=== PATIENT | male | born 1950 | race Two or more races ===

== ENCOUNTER 2017-06-28 15:41 | Inpatient (IN) | payer MEDICAID, MEDICARE ==
[~2017-06-28] VITALS: Ht 170.2 cm; Wt 78.0 kg
[2017-06-28] MEDS ORDERED: Sodium Chloride 500ML 500 ML IV ONE (16:04)
--- NOTE | 2017-06-28 16:34 | Emergency Room Report ---
History of Present Illness General Chief Complaint: Syncope Source: Patient, Family Member, EMS Present Illness HPI Patient presents with complaints of syncopal episode Over the past 10 days the patient has had several syncopal episodes reports low blood pressure Patient has history of Parkinson's is on 3 different medications Patient was at primary physician office when he had the syncopal episode and sent to the ER Here the patient denies any chest pain or shortness of breath reports the patient has chronic low back pain Denies any neck pain or photophobia patient however has had increased urination frequency Allergies: Coded Allergies: No Known Allergies (Unverified , 06/28/17) Patient History Past Medical History: see triage record Past Surgical History: none Reviewed Nursing Documentation: PMH: Agreed, PSxH: Agreed Nursing Documentation-PMH History Of Psychiatric Problem: Yes - Depression Hx Neurological Problems: Yes - Simrankinshaleigh's Review of Systems All Other Systems: negative except mentioned in HPI Physical Exam Vital Signs Date Time Temp Pulse Resp B/P (MAP) Pulse Ox O2 Delivery O2 Flow Rate FiO2 06/28/17 15:15 98.1 80 20 117/69 99 Room Air Sp02 EP Interpretation: reviewed, normal General Appearance: well appearing, no apparent distress Head: normocephalic, atraumatic Eyes: bilateral eye PERRL, bilateral eye EOMI ENT: hearing grossly normal, normal pharynx Neck: supple Respiratory: chest non-tender, lungs clear Cardiovascular #1: regular rate, rhythm, no edema Gastrointestinal: non tender, soft Musculoskeletal: other - Patient has baseline tremor, in line with appears to be Parkinson's Neurologic: alert, oriented x3, responsive, other - Parkinson's tremor Skin: normal color, no rash Lymphatic: no adenopathy Medical Decision Making Diagnostic Impression: Primary Impression: Syncope Additional Impression: Pyelonephritis ER Course Patient is a fairly complex patient with multiple differential to consideration including but not limited to cardiac cardiopulmonary and vascular emergencies Patient's evaluation also reveals UTI with possible pyelonephritis Possible early sepsis Patient otherwise remains appropriate hemodynamically At this time provide broad-spectrum antibiotics And patient admitted for further inpatient care Labs Test 06/28/17 16:30 06/28/17 17:28 White Blood Count 10.9 K/UL (4.8-10.8) Red Blood Count 4.79 M/UL (4.70-6.10) Hemoglobin 15.7 G/DL (14.2-18.0) Hematocrit 45.1 % (42.0-52.0) Mean Corpuscular Volume 94 FL (80-99) Mean Corpuscular Hemoglobin 32.7 PG (27.0-31.0) Mean Corpuscular Hemoglobin Concent 34.8 G/DL (32.0-36.0) Red Cell Distribution Width 10.9 % (11.6-14.8) Platelet Count 213 K/UL (150-450) Mean Platelet Volume 5.7 FL (6.5-10.1) Neutrophils (%) (Auto) 73.2 % (45.0-75.0) Lymphocytes (%) (Auto) 12.4 % (20.0-45.0) Monocytes (%) (Auto) 13.5 % (1.0-10.0) Eosinophils (%) (Auto) 0.3 % (0.0-3.0) Basophils (%) (Auto) 0.7 % (0.0-2.0) Sodium Level 136 MMOL/L (136-145) Potassium Level 4.4 MMOL/L (3.5-5.1) Chloride Level 100 MMOL/L (98-107) Carbon Dioxide Level 25 MMOL/L (21-32) Anion Gap 11 mmol/L (5-15) Blood Urea Nitrogen 17 mg/dL (7-18) Creatinine 1.0 MG/DL (0.55-1.30) Estimat Glomerular Filtration Rate > 60 mL/min (>60) Glucose Level 100 MG/DL (74-106) Calcium Level 7.4 MG/DL (8.5-10.1) Total Bilirubin 0.9 MG/DL (0.2-1.0) Aspartate Amino Transf (AST/SGOT) 17 U/L (15-37) Alanine Aminotransferase (ALT/SGPT) 9 U/L (12-78) Alkaline Phosphatase 85 U/L (46-116) Total Creatine Kinase 85 U/L (26-308) Creatine Kinase MB 0.5 NG/ML (0.0-3.6) Creatine Kinase MB Relative Index 0.5 Troponin I 0.000 ng/mL (0.000-0.056) Total Protein 7.2 G/DL (6.4-8.2) Albumin 3.2 G/DL (3.4-5.0) Globulin 4.0 g/dL Albumin/Globulin Ratio 0.8 (1.0-2.7) Lipase 138 U/L (73-393) Urine Color Pale yellow Urine Appearance Slightly cloudy Urine pH 6.5 (4.5-8.0) Urine Specific [place] 1.010 (1.005-1.035) Urine Protein 3+ (NEGATIVE) Urine Glucose (UA) Negative (NEGATIVE) Urine Ketones Negative (NEGATIVE) Urine Occult Blood 4+ (NEGATIVE) Urine Nitrite Positive (NEGATIVE) Urine Bilirubin Negative (NEGATIVE) Urine Urobilinogen Normal MG/DL (0.0-1.0) Urine Leukocyte Esterase 3+ (NEGATIVE) Urine RBC 5-10 /HPF (0 - 0) Urine WBC 10-15 /HPF (0 - 0) Urine Squamous Epithelial Cells None /LPF (NONE/OCC) Urine Amorphous Sediment Few /LPF (NONE) Urine Bacteria Moderate /HPF (NONE) EKG Diagnostic Results Rate: normal Rhythm: NSR ST Segments: no acute changes Rhythm Strip Diag. Results EP Interpretation: yes Rate: 78 Rhythm: NSR, no PVC's, no ectopy Last Vital Signs Date Time Temp Pulse Resp B/P (MAP) Pulse Ox O2 Delivery O2 Flow Rate FiO2 06/28/17 15:15 98.1 80 20 117/69 99 Room Air Status: improved Disposition: ADMITTED INPATIENT Condition: Serious YOHANA WALL D.O. Jun 28, 2017 16:34
[2017-06-28 16:51] LABS: BASOPHILS % (AUTO) 0.7 % (0.0-2.0); EOSINOPHILS % (AUTO) 0.3 % (0.0-3.0); HEMATOCRIT 45.1 % (42.0-52.0); HEMOGLOBIN 15.7 G/DL (14.2-18.0); LYMPHOCYTES % (AUTO) 12.4 % (20.0-45.0); MEAN CORPUSCULAR VOLUME 94 FL (80-99); MONOCYTES % (AUTO) 13.5 % (1.0-10.0); NEUTROPHILS % (AUTO) 73.2 % (45.0-75.0); PLATELET COUNT 213 K/UL (150-450); RED BLOOD COUNT 4.79 M/UL (4.70-6.10); RED CELL DISTRIBUTION WIDTH 10.9 % (11.6-14.8); WHITE BLOOD COUNT 10.9 K/UL (4.8-10.8)
[2017-06-28 17:00] LABS: ANION GAP 11 mmol/L (5-15); BLOOD UREA NITROGEN 17 mg/dL (7-18); CALCIUM 7.4 MG/DL (8.5-10.1); CARBON DIOXIDE 25 MMOL/L (21-32); CHLORIDE 100 MMOL/L (98-107); POTASSIUM 4.4 MMOL/L (3.5-5.1); SODIUM 136 MMOL/L (136-145)
[2017-06-28 17:06] VITALS: BP 129/58
[2017-06-28 17:13] LABS: ALANINE AMINOTRANSFERASE 9 U/L (12-78); ALBUMIN 3.2 G/DL (3.4-5.0); ALBUMIN/GLOBULIN RATIO 0.8 (1.0-2.7); ALKALINE PHOSPHATASE 85 U/L (46-116); ASPARTATE AMINO TRANSFERASE 17 U/L (15-37); BILIRUBIN,TOTAL 0.9 MG/DL (0.2-1.0); CKMB 0.5 NG/ML (0.0-3.6); CREATINE KINASE 85 U/L (26-308)
[2017-06-28 17:37] LABS: BILIRUBIN, URINE NEGATIVE (NEGATIVE); COLOR,URINE PALE YELLOW; GLUCOSE, URINE (UA) NEGATIVE (NEGATIVE); KETONES,URINE NEGATIVE (NEGATIVE); LEUKOCYTE ESTERASE ,URINE 3+ (NEGATIVE); NITRITE,URINE POSITIVE (NEGATIVE); PH,URINE 6.5 (4.5-8.0); PROTEIN,URINE 3+ (NEGATIVE); UROBILINOGEN,URINE NORMAL MG/DL (0.0-1.0)
[2017-06-28 17:39] LABS: APPEARANCE,URINE SLIGHTLY CLOUDY
[2017-06-28] MEDS ORDERED: cefTRIAXone 1 GM in NS 55 ML IVPB ONE (18:00)
[2017-06-28 18:21] VITALS: BP 123/57
[2017-06-28 19:00] VITALS: BP 135/56
[2017-06-28] MEDS ORDERED: Trihexyphenidyl 2mg tab ORAL ONE (19:45)
[2017-06-28] MEDS ORDERED: Levodopa/Carbidopa 25/100 tab ORAL ONE (19:45)
[2017-06-28] MEDS ORDERED: TRIHEXYPHENIDYL2 MG ORAL (19:46)
[2017-06-28] MEDS ORDERED: DOCUSATE SODIU250 MG ORAL (20:07)
[2017-06-28] MEDS ORDERED: SINEMET 25-1001 EAC1 ORAL ×2 (20:12→20:13)
[2017-06-28] MEDS ORDERED: MOBIC7.5 MG ORAL (20:14)
[2017-06-28] MEDS ORDERED: LACTULOSE20 GM/301 ORAL (20:15)
[2017-06-28] MEDS ORDERED: TAMSULOSIN HCL0.4 MG ORAL (20:16)
[2017-06-28] MEDS ORDERED: AMANTADINE100 M2 ORAL (20:19)
[2017-06-28] MEDS ORDERED: PROPRANOLOL HCL20 MG ORAL (20:23)
[2017-06-28] MEDS ORDERED: ASPIR-LOW81 MG ORAL (20:24)
[2017-06-28] MEDS ORDERED: VITAMIN D1000 UNI1 ORAL (20:24)
[2017-06-28] MEDS ORDERED: FISH OIL 1,0001 EAC1 ORAL (20:25)
[2017-06-28 21:00] VITALS: BP 145/59
[2017-06-28 22:30] VITALS: BP 142/61
[2017-06-28 23:40] VITALS: BP_SYST 133; BP_SYST 142; BP_DIAS 61; BP_DIAS 67
[2017-06-29 04:00] VITALS: BP 136/64
[2017-06-29 08:00] VITALS: BP 147/70
[2017-06-29 08:44] LABS: BASOPHILS % (AUTO) 0.6 % (0.0-2.0); EOSINOPHILS % (AUTO) 0.6 % (0.0-3.0); HEMATOCRIT 43.1 % (42.0-52.0); HEMOGLOBIN 14.7 G/DL (14.2-18.0); MEAN CORPUSCULAR VOLUME 96 FL (80-99); MONOCYTES % (AUTO) 12.5 % (1.0-10.0); NEUTROPHILS % (AUTO) 65.4 % (45.0-75.0); PLATELET COUNT 240 K/UL (150-450); RED CELL DISTRIBUTION WIDTH 10.9 % (11.6-14.8); WHITE BLOOD COUNT 9.1 K/UL (4.8-10.8)
[2017-06-29 08:53] LABS: ANION GAP 10 mmol/L (5-15); BLOOD UREA NITROGEN 16 mg/dL (7-18); CALCIUM 7.6 MG/DL (8.5-10.1); CARBON DIOXIDE 25 MMOL/L (21-32); CHLORIDE 104 MMOL/L (98-107); POTASSIUM 3.8 MMOL/L (3.5-5.1); SODIUM 138 MMOL/L (136-145)
[2017-06-29 12:00] VITALS: BP 136/63
--- NOTE | 2017-06-29 12:58 | Cardiology Report ---
APPROVED REPORT EKG Measurement Heart [id number] Normal sinus rhythm Normal ECG
[2017-06-29] MEDS ORDERED: Lactulose 20gm/30ml UDC ORAL PRN (13:15)
[2017-06-29] MEDS: Levodopa/Carbidopa 25/100 tab ORAL SCH (13:30)
[2017-06-29] MEDS ORDERED: Levodopa/Carbidopa 25/100 tab ORAL SCH ×2 (13:30→19:30)
[2017-06-29] MEDS: Amantadine 100mg cap ORAL SCH (14:30)
[2017-06-29] MEDS: Trihexyphenidyl 2mg tab ORAL SCH ×2 (14:30→20:01)
[2017-06-29 16:00] VITALS: BP 134/60
[2017-06-29] MEDS: Aspirin EC 81mg tab ORAL SCH (18:12)
[2017-06-29] MEDS ORDERED: cefTRIAXone 1 GM in D5W 55 ML IVPB SCH (20:00)
[2017-06-29 20:42] VITALS: BP 150/78
[2017-06-29] MEDS ORDERED: Tamsulosin 0.4mg cap ORAL SCH (21:00)
[2017-06-29] MEDS ORDERED: Norco 5mg/325mg tab ORAL PRN (22:45)
[2017-06-30 00:41] VITALS: BP 151/74
[2017-06-30 04:50] VITALS: BP 148/69
--- NOTE | 2017-06-30 05:00 | History and Physical Report ---
DATE OF ADMISSION: 06/28/2017 HISTORY OF PRESENT ILLNESS: The patient is a 67-year-old male with past medical history significant for history of Parkinson disease. At this time, I have called the patient with primary care physician. He had a syncopal episode, therefore sent to the ER. reports the patient has chronic back pain. Denies any photophobia. He presents with complaints of syncopal episode again. Over the past 10 days, he has been feeling weak, decreased blood pressure as well as having a low blood sugar, which has currently improved, and I have ordered for neurology evaluation. The patient also to be seen by ID Service. The patient has gram-positive bacilli noted in the urine white count. PAST MEDICAL HISTORY: As noted above. PAST SURGICAL HISTORY: None noted. ALLERGIES: No known drug allergies. FAMILY HISTORY: Noncontributory. REVIEW OF SYSTEMS: A 12-point review of systems otherwise negative. PHYSICAL EXAMINATION: GENERAL: No acute distress. VITAL SIGNS: Reviewed. PULMONARY: Decreased breath sounds. CARDIOVASCULAR: Regular rate. No S3 or S4. ABDOMEN: Soft, nontender, and nondistended. EXTREMITIES: A 1+ edema. LABORATORY DATA: Reviewed as noted in EMR. ASSESSMENT AND RECOMMENDATIONS: 1. Syncope, potentially secondary to pyelonephritis infection. Continue current antibiotics. I appreciate ID consult. 2. Urinary tract infection. Continue antibiotics as per ID. 3. Hip pain. Continue pain medications. Begin the patient on [place] as needed. 4. Syncope versus presyncope. Obtain neurological evaluation. 5. Hyperglycemia, likely related to intake of sugar. 6. Leukocytosis, probably secondary to urinary tract infection. I appreciate the contamination consultant care. Raz Padilla M.D. DR: MICHAEL JOB#: [id number] CC:
[2017-06-30] MEDS: Trihexyphenidyl 2mg tab ORAL SCH ×3 (07:02→18:36)
[2017-06-30] MEDS: Levodopa/Carbidopa 25/100 tab ORAL SCH ×2 (07:02→13:23)
[2017-06-30] MEDS: Amantadine 100mg cap ORAL SCH ×2 (07:02→13:23)
[2017-06-30 08:00] VITALS: BP 157/71
--- NOTE | 2017-06-30 08:39 | Diagnostic Imaging Report ---
Indication: Abnormal renal function tests Technique: Grayscale and duplex images of the kidneys, retroperitoneum, and bladder were obtained. Comparison: Findings: Right kidney measures 10.9 cm in length. Left kidney measures 13 cm in length. Both kidneys demonstrate normal echogenicity. No hydronephrosis. No focal abnormality. Normal inferior vena cava. Bladder contains debris. Impression: Debris within the bladder. This is nonspecific, could indicate infection, blood, among other possibilities Negative for hydronephrosis.
[2017-06-30] MEDS ORDERED: Vitamin D 1000 IU Tab ORAL SCH (09:00)
[2017-06-30] MEDS: Docusate 100mg cap ORAL PRN ×2 (09:12→13:23)
[2017-06-30] MEDS: Aspirin EC 81mg tab ORAL SCH (09:12)
[2017-06-30 12:00] VITALS: BP 147/69
[2017-06-30 16:30] VITALS: BP 132/77
[2017-06-30] MEDS ORDERED: Norco 5mg/325mg tab ORAL PRN (16:45)
[2017-06-30] MEDS ORDERED: Docusate 100mg cap ORAL PRN (18:00)
--- NOTE | 2017-06-30 18:47 | Consultation ---
DATE OF CONSULTATION: 06/30/2017 INFECTIOUS DISEASE CONSULTATION CONSULTING PHYSICIAN: Guy Park M.D. PRIMARY ATTENDING PHYSICIAN: Raz Padilla M.D. REASON FOR CONSULTATION: UTI. HISTORY OF PRESENT ILLNESS: The patient is a 67-year-old male admitted on 06/28/2017 because of syncopal episode. The patient had been feeling weak in recent days with low blood pressure. He has some suprapubic pain. PAST MEDICAL HISTORY: Significant for Parkinson disease, has prostatic enlargement and last year had ablation. ALLERGIES: No known drug allergies. MEDICATIONS: Meloxicam, Colace, [place], Flomax, ceftriaxone, Sinemet, amantadine, Artane, aspirin, lactulose and sodium chloride. SOCIAL HISTORY: Originally from [place]. 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 He is an ex-smoker. The last time he smoked was 17 years ago. REVIEW OF SYSTEMS: No fever. No chills. Some suprapubic pain. No nausea. No vomiting. No diarrhea. No coughing. PHYSICAL EXAMINATION: VITAL SIGNS: Temperature 98.1, pulse 61, and blood pressure is 157/71. GENERAL APPEARANCE: No acute distress. HEAD AND NECK: Coulter conjunctivae. HEART: S1 and S2 regular. LUNGS: Clear. ABDOMEN: Soft. Mildly tender in the suprapubic area. EXTREMITIES: He has no edema. Good muscle force in upper extremity, and has had some muscle weakness in the legs. NEUROLOGIC: Awake, alert, and oriented. LABORATORY AND DIAGNOSTIC DATA: WBC 9.1, hemoglobin 14.1, hematocrit 43.1, and platelets 240. Sodium 138, potassium 3.8, chloride 104, bicarbonate 25, BUN 16, creatinine 1, and glucose 159. Urine culture grew E. coli that is sensitive to all antibiotics in the panel. IMPRESSION: Escherichia coli urinary tract infection, likely cystitis. There was some debris within the bladder on ultrasound. The patient had a syncopal episode, has Parkinson disease. RECOMMENDATION: Continue Rocephin at the hospital. Can be discharged with p.o. amoxicillin or Keflex. At the end of my exam, I thank Dr. Padilla for involving me in the care of this patient. Guy Park M.D. DR: MAIDA JOB#: [id number] CC:
[2017-06-30] MEDS ORDERED: Levodopa/Carbidopa 25/100 tab ORAL SCH (19:30)
[2017-06-30 20:14] VITALS: BP 160/70
[2017-06-30] MEDS ORDERED: cefTRIAXone 1 GM in D5W 55 ML IVPB SCH (21:00)
[2017-06-30] MEDS ORDERED: Tamsulosin 0.4mg cap ORAL SCH (21:00)
[2017-06-30] MEDS ORDERED: Lactulose 20gm/30ml UDC ORAL PRN (21:15)
[2017-07-01 00:01] VITALS: BP 149/67
[2017-07-01 04:00] VITALS: BP 140/80
[2017-07-01] MEDS: Trihexyphenidyl 2mg tab ORAL SCH (06:52)
[2017-07-01] MEDS ORDERED: Amantadine 100mg cap ORAL SCH (07:30)
[2017-07-01] MEDS ORDERED: Levodopa/Carbidopa 25/100 tab ORAL SCH (07:30)
[2017-07-01 08:00] VITALS: BP 128/55
--- NOTE | 2017-07-01 08:55 | General Progress Note ---
Assessment/Plan Assessment/Plan LATE ENTRY ASSESSMENT AND RECOMMENDATIONS: 1. Syncope, potentially secondary to cystitis infection. Continue current antibiotics. appreciate ID consult. 2. Cystitis. Continue antibiotics as per ID. 3. Hip pain. Continue pain medications. Begin the patient on [place] as needed. 4. Syncope versus presyncope. Obtain neurological evaluation. 5. Leukocytosis, probably secondary to urinary tract infection. Subjective Date patient seen: Jun 30, 2017 Allergies: Coded Allergies: No Known Allergies (Unverified , 06/28/17) All Systems: reviewed and negative except above Subjective NAD on abx Objective Last 24 Hour Vital Signs Date Time Temp Pulse Resp B/P (MAP) Pulse Ox O2 Delivery O2 Flow Rate FiO2 07/01/17 08:00 98.0 73 18 128/55 97 07/01/17 04:01 Room Air 07/01/17 04:00 98.0 55 18 140/80 97 07/01/17 00:02 Room Air 07/01/17 00:01 98.3 53 17 149/67 98 06/30/17 20:15 Room Air 06/30/17 20:14 97.1 58 19 160/70 98 06/30/17 16:30 98.2 65 20 132/77 96 06/30/17 12:00 60 06/30/17 12:00 98.1 61 20 147/69 96 Room Air Intake and Output 06/30/17 07/01/17 19:00 07:00 Intake Total 480 ml 1495 ml Output Total 1400 ml Balance -920 ml 1495 ml Intake Oral 480 ml 240 ml IV Total 1255 ml Output Urine Total 1400 ml # Voids 2 Height (Feet): 5 Height (Inches): 7.00 Weight (Pounds): 172 General Appearance: no apparent distress EENT: normal ENT inspection Neck: normal alignment Cardiovascular: normal peripheral pulses Abdomen: non tender 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
[2017-07-01] MEDS ORDERED: Heparin 5000 units/ml inj SUBQ SCH (09:00)
[2017-07-01] MEDS ORDERED: Vitamin D 1000 IU Tab ORAL SCH (09:00)
[2017-07-01] MEDS ORDERED: Aspirin EC 81mg tab ORAL SCH (09:00)
[2017-07-01] MEDS ORDERED: Tubing IV Secondary IV ONE ×2 (12:21)
--- NOTE | 2017-07-05 07:47 | Discharge Summary ---
Discharge Summary Hospital Course Date of Admission Jun 28, 2017 at 18:14 Date of Discharge Jul 01, 2017 at 12:22 Admitting Diagnosis PYELONEPHRITIES,SYNCOPE YURIY Thomas is a 67 year old male who was admitted on Jun 28, 2017 at 18:14 for Pyelonephrities, Syncope Hospital Course dc summary #[id number] Discharge Medications Continued Medications: Amantadine Hcl* (Amantadine*) 100 Mg Tablet 100 MG ORAL BID@0730,1330, TAB Aspirin* (Aspir-Low*) 81 Mg Tablet.dr 81 MG ORAL DAILY, TAB Carbidopa/Levodopa 25-100 Mg* (Sinemet 25-100 Mg Tablet*) 1 Each Tablet 1 TAB ORAL DAILY@1930, TAB Carbidopa/Levodopa 25-100 Mg* (Sinemet 25-100 Mg Tablet*) 1 Each Tablet 2 TAB ORAL BID@0730,1330, TAB Cholecalciferol (Vitamin D3)* (Vitamin D*) Unknown Strength Tablet Unknown Dose ORAL DAILY, #30 TAB Docusate Sodium* (Docusate Sodium*) 250 Mg Capsule 250 MG ORAL PRN for Constipation, CAP Lactulose (Lactulose*) 20 Gm/30 Ml Solution 15 ML ORAL PRN for Constipation, ML 0 Refills Meloxicam* (Mobic*) 7.5 Mg Tablet 7.5 MG ORAL DAILY, #30 TAB 0 Refills [place]-3 Fatty Acids/Fish Oil* (Fish Oil 1,000 Mg Softgel*) Unknown Strength Capsule Unknown Dose ORAL, #30 CAP 0 Refills Propranolol Hcl* (Inderal*) Unknown Strength Tablet Unknown Dose ORAL, #90 TAB 0 Refills Tamsulosin Hcl (Tamsulosin Hcl*) 0.4 Mg Cap.er.24h 0.4 MG ORAL BEDTIME, CAP Trihexyphenidyl Hcl* (Artane*) 2 Mg Tablet 2 MG ORAL TID@0730,1330,1930, TAB Discharge Condition Upon Discharge: stable Discharge Disposition Patient was discharged home Discharge Diagnoses: Discharge Instructions Discharge Instructions Special Instructions I have been assigned to complete a D/C Summary on this account. I was not involved in the patient management Dipika Castaneda NP ([place]) Jul 05, 2017 07:47
--- NOTE | 2017-07-05 17:30 | Discharge Summary 2 SIG ---
DATE OF ADMISSION: 06/28/2017 DATE OF DISCHARGE: 07/01/2017 REASON FOR ADMISSION: 67-year-old male with history of Parkinson disease, presented to emergency room after syncopal episode. Apparently over the last 10 days, the patient had several syncopal episodes, the last one in the doctor's office. Doctor sent the patient to emergency room for evaluation. reported low blood pressure. In the emergency department, vital signs were stable. Blood pressure -117/69, WBC -10.9, and stable hemoglobin and hematocrit. Stable renal parameters and electrolytes. Troponin was negative. EKG showed normal sinus rhythm, no acute ischemic changes. Urinalysis revealed evidence of urinary tract infection. The patient was admitted with diagnoses of syncope and possible pyelonephritis. HOSPITAL STAY: The patient was admitted. ID consult was requested. The patient was started on empiric antibiotics. Urine culture was positive for E.coli. Renal ultrasound revealed normal echogenicity of bilateral kidneys, no hydronephrosis, and bladder containing debris. Blood pressure remained stable throughout the stay in the hospital. Home medications were resumed. DVT prophylaxis was provided. Parkinson management with Sinemet, Amantadine and Artane was continued. Bowel regimen was instituted. Pain management was provided for chronic low back and hip pain. No leukocytosis. ID cleared for discharge on oral antibiotics. The patient was stable for discharge home. FINAL DIAGNOSES: 1. Syncope likely secondary to cystitis infection. 2. Cystitis. 3. Parkinson disease. 4. Hip pain. 5. Mild leukocytosis likely secondary to urinary tract infection, resolved. DISCHARGE MEDICATIONS: See medication reconciliation list. DISCHARGE INSTRUCTIONS: The patient was discharged home. FOLLOWUP: Follow up with the primary medical doctor. Raz Padilla M.D. I have been assigned to dictate discharge summary on this account and I was not involved in the patient's management. Dipika Haletuan N.PKaelyn DR: JUAN MIGUEL JOB#: [id number] CC: DON
== END 2017-07-01 12:22 | disposition home or self-care (01) | DRG 463 ==
LOC: EDBD 15:41 → EMR 17:08 → 2E 18:14 → EDBEDREQ 22:23 → 3E 06-30 16:43
DX: N30.90 Cystitis, unspecified without hematuria (principal); G20 Parkinson's disease; R55 Syncope and collapse; B96.20 Unspecified Escherichia coli [E. coli] as the cause of diseases classified elsewhere; Z87.891 Personal history of nicotine dependence; R73.9 Hyperglycemia, unspecified; D72.829 Elevated white blood cell count, unspecified; M25.559 Pain in unspecified hip
CPT/HCPCS: 36415; 76775; 80048; 80053; 81003; 82550; 82553; 83690; 84484; 85025; 87086; 87181; 93005; 99285